=== PATIENT | female | born 1975 | race Caucasian/White ===

== ENCOUNTER 2017-11-18 13:31 | Emergency (ER) | payer MEDICARE, MEDICAID ==
[~2017-11-18] VITALS: Ht 154.9 cm; Wt 74.8 kg
[~2017-11-18 13:31] MED LIST: CARB200T OR; LACO50TA2 OR; TOPI200T37 OR
[2017-11-18 17:00] VITALS: BP 124/86
== END 2017-11-18 17:34 | disposition home or self-care (01) ==
LOC: ER 13:37
DX: S09.8XXA Other specified injuries of head, initial encounter (principal); Z88.6 Allergy status to analgesic agent; Z88.1 Allergy status to other antibiotic agents; W20.8XXA Other cause of strike by thrown, projected or falling object, initial encounter; Y93.89 Activity, other specified; Y92.89 Other specified places as the place of occurrence of the external cause; Y99.8 Other external cause status
CPT/HCPCS: 70450

== ENCOUNTER 2022-09-03 14:17 | Inpatient (IN) | payer MEDICARE, MEDICAID ==
[~2022-09-03] VITALS: Ht 165.1 cm; Wt 83.7 kg
[2022-09-03] VITALS (13 sets, daily range): BP systolic 99–142; BP diastolic 56–73
[~2022-09-03 14:17] MED LIST changes: +BRIV1TAB4 PO; +CHOL20007 PO; +FOLI1TAB6 PO; +OMEP20TA PO
[2022-09-03 15:17] LABS: Basophils # (auto) 0.1 10 ^3/uL (0-0.2); Basophils % (auto) 0.3 % (0.0-2.0); Eosinophils # (auto) 0 10 ^3/uL (0-0.8); Hematocrit 45.7 % (36.0-46.0); Hemoglobin 14.6 g/dL (12.2-16.2); Lymphocytes # (auto) 0.9 10 ^3/uL (0.4-5.4); Lymphocytes % (auto) 5.5 % (10.0-50.0); Mean Corpuscular Hemoglobin 26.6 pg (28.0-32.0); Mean Corpuscular Hgb Conc. 31.9 g/dL (32.0-36.0); Mean Corpuscular Volume 83.2 fL (80.0-100.0); Monocytes # (auto) 0.6 10 ^3/uL (0-1.3); Monocytes % (auto) 3.5 % (0.0-12.0); Neutrophils # (auto) 14.5 10 ^3/uL (1.6-8.6); Neutrophils % (auto) 90.7 % (37.0-80.0); Nucleated Red Blood Cells % 0.1 %; Red Blood Cells 5.49 10^6/uL (4.0-5.20); Red Cell Distribution Width 15.7 % (11.8-14.3)
[2022-09-03 15:26] LABS: Albumin 3.5 g/dL (3.4-5.0); Calcium 8.4 mg/dL (8.5-10.1); Potassium 3.6 mmol/L (3.5-5.1)
[2022-09-03 15:31] LABS: BUN/Creatinine Ratio 7.2; Bilirubin, Total 0.6 mg/dL (0.2-1.0); Total Protein 7.9 g/dL (6.4-8.2)
[2022-09-03 15:48] LABS: Urine Bacteria FEW /hpf (None Seen); Urine Blood 1+ /uL (Negative); Urine Mucus FEW (None Seen); Urine WBC 5 /hpf (0 - 5)
[2022-09-03] MEDS ORDERED: SODIUM CHLORIDE 0.9% 1,000 ML IVB ONE (16:15)
[2022-09-03] MEDS ORDERED: PIPERACILLIN-TAZOB 3.375GM 100 ML IV ONE (16:15)
[2022-09-03] MEDS ORDERED: PHENYLEPHRINE HCL 10 MG/ML VL IV ONE (17:01)
[2022-09-03 17:20] LABS: INR 1.11 (0.9-1.15); Partial Thromboplastin Time 32.8 sec (24.6-33.4)
[2022-09-03] MEDS ORDERED: PANTOPRAZOLE 40 MG/10 ML VIAL INJ IV ONE (18:45)
[2022-09-03] MEDS ORDERED: LIDOCAINE W/ EPINEPHRINE 2% INJ 20ML VIAL ONE (18:47)
[2022-09-03] MEDS ORDERED: SUCCINYLCHOLINE CHLORIDE 20 MG/ML 10ML VIAL IV ONE (18:47)
[2022-09-03] MEDS ORDERED: LIDOCAINE 2% JELLY 11ml (GLYDO) ONE (18:48)
[2022-09-03 18:52] LABS: INR 1.12 (0.9-1.15); Partial Thromboplastin Time 32.8 sec (24.6-33.4)
[2022-09-03] MEDS ORDERED: MIDAZOLAM HCL 2MG/2ML 2ml VIAL (1mg/ml) ONE ×3 (19:24→20:50)
[2022-09-03] MEDS ORDERED: fentaNYL CITRATE 100 MCG/2 ML VL ONE ×2 (19:24→20:25)
[2022-09-03] MEDS ORDERED: MEPERIDINE HCL (50 MG/ML) 1 ML VIAL ONE (19:24)
[2022-09-03] MEDS ORDERED: ETOMIDATE (2MG/ML) 20ML VIAL IV ONE (20:02)
[2022-09-03] MEDS ORDERED: DexAMETHasone SOD PHOS 10MG/1ML VIAL INJ ONE (20:02)
[2022-09-03] MEDS ORDERED: ROCURONIUM 10MG/ML 10ML VIAL IV ONE (20:09)
[2022-09-03] MEDS ORDERED: HYDROmorphone HCL 2 MG/ML VL/or syr ONE ×2 (20:19→20:50)
[2022-09-03] MEDS ORDERED: MORPHINE SULFATE INJ 2 MG/ml SYRG IV PRN (20:45)
[2022-09-03] MEDS ORDERED: MIDAZOLAM DRIP 50 mg/50mL 50 ML IV SCH (20:45)
[2022-09-03] MEDS: LACTATED RINGER'S 1,000 ML IV SCH (21:06)
[2022-09-03] MEDS ORDERED: LORazepam 2MG/ML-1ML VIAL IV PRN (21:15)
[2022-09-03] MEDS ORDERED: LABETALOL HCL 5 MG/ML 4ML SYRINGE IV PRN (21:30)
[2022-09-03] MEDS ORDERED: ONDANSETRON HCL 4 MG/2 ML VIAL IV PRN (21:30)
[2022-09-03] MEDS ORDERED: HYDROmorphone HCL 2 MG/ML VL/or syr IV PRN (21:30)
[2022-09-03] MEDS ORDERED: MIDAZOLAM HCL 2MG/2ML 2ml VIAL (1mg/ml) IV PRN (21:30)
[2022-09-03] MEDS ORDERED: MORPHINE SULFATE 4 MG/ML SYR/VIAL IV PRN ×3 (21:30)
[2022-09-03] MEDS ORDERED: ePHEDrine SULFATE 50 MG/ML AMP IV PRN (21:30)
[2022-09-03] MEDS ORDERED: fentaNYL Drip 2500mCg/250mlNS 250 ML IV SCH (22:00)
[2022-09-03] MEDS: POTASSIUM CHLORIDE 20 MEQ in D5W/LACTATED RINGERS 1,000 ML IV SCH (22:30)
[2022-09-03 22:45] LABS: Basophils # (auto) 0 10 ^3/uL (0-0.2); Basophils % (auto) 0.2 % (0.0-2.0); Eosinophils # (auto) 0 10 ^3/uL (0-0.8); Hemoglobin 12.7 g/dL (12.2-16.2); Lymphocytes # (auto) 0.5 10 ^3/uL (0.4-5.4)
[2022-09-03 22:47] LABS: Hematocrit 39.9 % (36.0-46.0); Lymphocytes % (auto) 2.9 % (10.0-50.0); Mean Corpuscular Hemoglobin 26.9 pg (28.0-32.0); Mean Corpuscular Hgb Conc. 31.7 g/dL (32.0-36.0); Mean Corpuscular Volume 84.9 fL (80.0-100.0); Monocytes # (auto) 0.5 10 ^3/uL (0-1.3); Monocytes % (auto) 3.2 % (0.0-12.0); Neutrophils # (auto) 15.2 10 ^3/uL (1.6-8.6); Neutrophils % (auto) 93.7 % (37.0-80.0); Red Cell Distribution Width 15.4 % (11.8-14.3); White Blood Cell 16.2 10^3/uL (4.4-10.8)
[2022-09-03 22:59] LABS: BUN/Creatinine Ratio 11.3; Calcium 7.5 mg/dL (8.5-10.1); Potassium 3.5 mmol/L (3.5-5.1)
[2022-09-04] VITALS (77 sets, daily range): BP systolic 88–130; BP diastolic 36–75
[2022-09-04] MEDS: PIPERACILLIN-TAZOB 3.375GM 100 ML IV SCH ×3 (03:00→19:36)
[2022-09-04 04:34] LABS: Basophils # (auto) 0 10 ^3/uL (0-0.2); Basophils % (auto) 0.1 % (0.0-2.0); Eosinophils # (auto) 0 10 ^3/uL (0-0.8); Hematocrit 38.3 % (36.0-46.0); Lymphocytes # (auto) 0.7 10 ^3/uL (0.4-5.4); Mean Corpuscular Hemoglobin 26.9 pg (28.0-32.0); Monocytes # (auto) 0.6 10 ^3/uL (0-1.3)
[2022-09-04 04:37] LABS: Hemoglobin 12.1 g/dL (12.2-16.2); Mean Corpuscular Hgb Conc. 31.6 g/dL (32.0-36.0); Monocytes % (auto) 4.3 % (0.0-12.0); Neutrophils # (auto) 13.5 10 ^3/uL (1.6-8.6); Neutrophils % (auto) 90.6 % (37.0-80.0); Red Cell Distribution Width 15.2 % (11.8-14.3)
[2022-09-04 04:51] LABS: Albumin 2.5 g/dL (3.4-5.0); BUN/Creatinine Ratio 8.3; Calcium 7.6 mg/dL (8.5-10.1); Potassium 3.7 mmol/L (3.5-5.1)
[2022-09-04 04:53] LABS: Bilirubin, Total 0.5 mg/dL (0.2-1.0); Total Protein 5.5 g/dL (6.4-8.2)
[2022-09-04] MEDS: POTASSIUM CHLORIDE 20 MEQ in D5W/LACTATED RINGERS 1,000 ML IV SCH ×2 (06:51→12:04)
[2022-09-04] MEDS: PANTOPRAZOLE 40 MG/10 ML VIAL INJ IV SCH (10:07)
[2022-09-04] MEDS: LACOSAMIDE 100 MG in SODIUM CHL 0.9% 100 ML IV SCH ×2 (11:01→22:00)
[2022-09-04] MEDS: LACTATED RINGER'S 1,000 ML IV SCH (11:25)
[2022-09-04] MEDS: MORPHINE SULFATE INJ 2 MG/ml SYRG IV PRN ×2 (15:01→22:57)
[2022-09-05] VITALS (20 sets, daily range): BP systolic 111–139; BP diastolic 67–84
[2022-09-05] MEDS: PIPERACILLIN-TAZOB 3.375GM 100 ML IV SCH ×3 (02:52→20:09)
[2022-09-05] MEDS: POTASSIUM CHLORIDE 20 MEQ in D5W/LACTATED RINGERS 1,000 ML IV SCH ×2 (03:03→23:15)
[2022-09-05 04:16] LABS: Basophils # (auto) 0 10 ^3/uL (0-0.2); Basophils % (auto) 0.4 % (0.0-2.0); Eosinophils # (auto) 0 10 ^3/uL (0-0.8); Eosinophils % (auto) 0.2 % (0.0-7.0); Hematocrit 38.1 % (36.0-46.0); Hemoglobin 12.5 g/dL (12.2-16.2); Lymphocytes # (auto) 0.6 10 ^3/uL (0.4-5.4); Mean Corpuscular Hemoglobin 27.3 pg (28.0-32.0); Mean Corpuscular Hgb Conc. 32.7 g/dL (32.0-36.0); Mean Corpuscular Volume 83.5 fL (80.0-100.0); Monocytes # (auto) 0.4 10 ^3/uL (0-1.3); Monocytes % (auto) 4.5 % (0.0-12.0); Neutrophils # (auto) 7.6 10 ^3/uL (1.6-8.6); Neutrophils % (auto) 87.9 % (37.0-80.0); Red Blood Cells 4.56 10^6/uL (4.0-5.20); Red Cell Distribution Width 14.9 % (11.8-14.3); White Blood Cell 8.7 10^3/uL (4.4-10.8)
[2022-09-05 04:32] LABS: Albumin 2.6 g/dL (3.4-5.0); BUN/Creatinine Ratio 13.6; Calcium 7.6 mg/dL (8.5-10.1); Potassium 3.6 mmol/L (3.5-5.1)
[2022-09-05 04:35] LABS: Bilirubin, Total 0.5 mg/dL (0.2-1.0); Total Protein 5.8 g/dL (6.4-8.2)
[2022-09-05] MEDS: MORPHINE SULFATE INJ 2 MG/ml SYRG IV PRN ×2 (08:45→18:55)
[2022-09-05] MEDS: PANTOPRAZOLE 40 MG/10 ML VIAL INJ IV SCH (11:08)
[2022-09-05] MEDS: LACOSAMIDE 100 MG in SODIUM CHL 0.9% 100 ML IV SCH ×2 (12:11→22:00)
[2022-09-06] MEDS: POTASSIUM CHLORIDE 20 MEQ in D5W/LACTATED RINGERS 1,000 ML IV SCH ×2 (02:00→12:06)
[2022-09-06] MEDS: PIPERACILLIN-TAZOB 3.375GM 100 ML IV SCH ×3 (03:41→19:00)
[2022-09-06] MEDS: MORPHINE SULFATE INJ 2 MG/ml SYRG IV PRN (04:37)
[2022-09-06 05:00] VITALS: BP 145/82
[2022-09-06 06:12] LABS: Basophils # (auto) 0 10 ^3/uL (0-0.2); Basophils % (auto) 0.8 % (0.0-2.0); Eosinophils # (auto) 0.1 10 ^3/uL (0-0.8); Eosinophils % (auto) 2.5 % (0.0-7.0); Hematocrit 36.2 % (36.0-46.0); Hemoglobin 11.7 g/dL (12.2-16.2); Lymphocytes # (auto) 0.9 10 ^3/uL (0.4-5.4); Lymphocytes % (auto) 16.9 % (10.0-50.0); Mean Corpuscular Hemoglobin 26.9 pg (28.0-32.0); Mean Corpuscular Hgb Conc. 32.3 g/dL (32.0-36.0); Mean Corpuscular Volume 83.3 fL (80.0-100.0); Monocytes # (auto) 0.5 10 ^3/uL (0-1.3); Monocytes % (auto) 9.3 % (0.0-12.0); Neutrophils # (auto) 3.9 10 ^3/uL (1.6-8.6); Neutrophils % (auto) 70.5 % (37.0-80.0); Nucleated Red Blood Cells % 0.1 %; Red Blood Cells 4.34 10^6/uL (4.0-5.20); Red Cell Distribution Width 14.7 % (11.8-14.3); White Blood Cell 5.5 10^3/uL (4.4-10.8)
[2022-09-06] MEDS: ONDANSETRON HCL 4 MG/2 ML VIAL IV PRN (06:12)
[2022-09-06 06:31] LABS: Albumin 2.3 g/dL (3.4-5.0); Calcium 7.6 mg/dL (8.5-10.1); Potassium 3.3 mmol/L (3.5-5.1)
[2022-09-06] MEDS ORDERED: TOPI200T43 (06:44)
[2022-09-06] MEDS ORDERED: ALBUAER3 (06:44)
[2022-09-06] MEDS ORDERED: CARB100T4 (06:44)
[2022-09-06] MEDS ORDERED: FERR325T20 PO (06:44)
[2022-09-06] MEDS ORDERED: BRIV1TAB7 (06:44)
[2022-09-06] MEDS ORDERED: OMEP-260 (06:44)
[2022-09-06] MEDS ORDERED: LATA0.0019 (06:44)
[2022-09-06 06:46] LABS: BUN/Creatinine Ratio 7.1; Bilirubin, Total 0.4 mg/dL (0.2-1.0); Total Protein 5.4 g/dL (6.4-8.2)
[2022-09-06 08:51] VITALS: BP 110/62
[2022-09-06] MEDS: LACOSAMIDE 100 MG in SODIUM CHL 0.9% 100 ML IV SCH (10:00)
[2022-09-06] MEDS ORDERED: POTASSIUM CHL 20MEQ/100ML 100 ML IV ONE (10:00)
[2022-09-06] MEDS: PANTOPRAZOLE 40 MG/10 ML VIAL INJ IV SCH (10:12)
[2022-09-06 13:00] VITALS: BP 144/68
[2022-09-06 16:51] VITALS: BP 127/71
[2022-09-06 22:06] VITALS: BP 118/53
[2022-09-06] MEDS ORDERED: LACOSAMIDE 100 MG in SODIUM CHL 0.9% 100 ML IV ONE (23:45)
[2022-09-07] MEDS: PIPERACILLIN-TAZOB 3.375GM 100 ML IV SCH ×2 (03:03→10:56)
[2022-09-07] MEDS: POTASSIUM CHLORIDE 20 MEQ in D5W/LACTATED RINGERS 1,000 ML IV SCH ×2 (03:03→05:33)
[2022-09-07 05:17] VITALS: BP 126/79
[2022-09-07] MEDS ORDERED: carBAMazepine 200 MG TAB PO SCH (06:00)
[2022-09-07 06:54] LABS: Basophils # (auto) 0 10 ^3/uL (0-0.2); Basophils % (auto) 0.8 % (0.0-2.0); Eosinophils # (auto) 0.2 10 ^3/uL (0-0.8); Eosinophils % (auto) 3.4 % (0.0-7.0); Hematocrit 36.1 % (36.0-46.0); Hemoglobin 12.2 g/dL (12.2-16.2); Mean Corpuscular Hemoglobin 27.8 pg (28.0-32.0); Mean Corpuscular Hgb Conc. 33.8 g/dL (32.0-36.0); Mean Corpuscular Volume 82.3 fL (80.0-100.0); Monocytes # (auto) 0.5 10 ^3/uL (0-1.3); Monocytes % (auto) 10.2 % (0.0-12.0); Neutrophils # (auto) 3.3 10 ^3/uL (1.6-8.6); Neutrophils % (auto) 65.6 % (37.0-80.0); Nucleated Red Blood Cells % 0.2 %; Red Blood Cells 4.39 10^6/uL (4.0-5.20); Red Cell Distribution Width 14.6 % (11.8-14.3)
[2022-09-07 07:05] LABS: Albumin 2.4 g/dL (3.4-5.0); Calcium 8.3 mg/dL (8.5-10.1); Magnesium 2.3 mg/dL (1.6-2.6); Potassium 3.5 mmol/L (3.5-5.1)
[2022-09-07 07:10] LABS: BUN/Creatinine Ratio 4.7; Bilirubin, Total 0.5 mg/dL (0.2-1.0); Total Protein 6.4 g/dL (6.4-8.2)
[2022-09-07 09:03] VITALS: BP 107/69
[2022-09-07] MEDS: PANTOPRAZOLE 40 MG/10 ML VIAL INJ IV SCH (09:37)
[2022-09-07] MEDS: TOPIRAMATE 100 MG TAB PO SCH ×2 (09:39→21:55)
[2022-09-07] MEDS: LACOSAMIDE 50 MG TAB PO SCH ×2 (09:40→21:56)
[2022-09-07] MEDS ORDERED: levETIRAcetam 500 MG TAB PO SCH (10:00)
[2022-09-07] MEDS ORDERED: diphenhdrAMINE HCL 50 MG/1 ML VL IM ONE (11:45)
[2022-09-07] MEDS ORDERED: diphenhdrAMINE HCL 50 MG/1 ML VL IV ONE (12:00)
[2022-09-07 12:54] VITALS: BP 133/61
[2022-09-07] MEDS: ONDANSETRON HCL 4 MG/2 ML VIAL IV PRN ×2 (14:49→20:39)
[2022-09-07 16:32] VITALS: BP 128/77
[2022-09-07] MEDS: diphenhdrAMINE HCL 50 MG/1 ML VL IV PRN (18:02)
[2022-09-07] MEDS: BRIVIACT 100 MG PO SCH (21:55)
[2022-09-07] MEDS: carBAMazepine 200 MG TAB PO SCH (21:55)
[2022-09-07 22:00] VITALS: BP 125/77
[2022-09-08 05:00] VITALS: BP 116/69
[2022-09-08 05:29] LABS: Basophils # (auto) 0.1 10 ^3/uL (0-0.2); Basophils % (auto) 0.8 % (0.0-2.0); Eosinophils # (auto) 0.3 10 ^3/uL (0-0.8); Eosinophils % (auto) 4.1 % (0.0-7.0); Hematocrit 35.9 % (36.0-46.0); Hemoglobin 11.8 g/dL (12.2-16.2); Lymphocytes # (auto) 1.4 10 ^3/uL (0.4-5.4); Lymphocytes % (auto) 20.1 % (10.0-50.0); Mean Corpuscular Hemoglobin 26.9 pg (28.0-32.0); Mean Corpuscular Hgb Conc. 32.8 g/dL (32.0-36.0); Mean Corpuscular Volume 82.1 fL (80.0-100.0); Monocytes # (auto) 0.6 10 ^3/uL (0-1.3); Monocytes % (auto) 8.8 % (0.0-12.0); Neutrophils # (auto) 4.8 10 ^3/uL (1.6-8.6); Neutrophils % (auto) 66.2 % (37.0-80.0); Nucleated Red Blood Cells % 0.1 %; Red Blood Cells 4.38 10^6/uL (4.0-5.20); Red Cell Distribution Width 14.8 % (11.8-14.3); White Blood Cell 7.2 10^3/uL (4.4-10.8)
[2022-09-08 05:50] LABS: Potassium 3.6 mmol/L (3.5-5.1)
[2022-09-08 05:57] LABS: Albumin 2.5 g/dL (3.4-5.0); BUN/Creatinine Ratio 6.4; Bilirubin, Total 0.5 mg/dL (0.2-1.0); Magnesium 2.1 mg/dL (1.6-2.6); Total Protein 6.2 g/dL (6.4-8.2)
[2022-09-08] MEDS: PIPERACILLIN-TAZOB 3.375GM 100 ML IV SCH ×2 (09:07→15:44)
[2022-09-08 09:12] VITALS: BP_SYST 111; BP_SYST 124; BP_DIAS 72; BP_DIAS 80
[2022-09-08] MEDS ORDERED: CALAMINE TOPical LOTION180 ML TOP PRN (09:30)
[2022-09-08] MEDS ORDERED: AMOXICILLIN/CLAVUL 875 MG TAB PO SCH (10:00)
[2022-09-08] MEDS: PANTOPRAZOLE 40 MG/10 ML VIAL INJ IV SCH (10:00)
[2022-09-08] MEDS: BRIVIACT 100 MG PO SCH ×2 (10:00→22:25)
[2022-09-08] MEDS: TOPIRAMATE 100 MG TAB PO SCH ×2 (10:52→22:24)
[2022-09-08] MEDS: LACOSAMIDE 50 MG TAB PO SCH ×2 (10:53→22:24)
[2022-09-08] MEDS: carBAMazepine 200 MG TAB PO SCH ×2 (10:53→22:24)
[2022-09-08 12:33] VITALS: BP 124/71
[2022-09-08 16:52] VITALS: BP 128/70
[2022-09-08] MEDS: diphenhdrAMINE-ZINC ACETATE 1 APPLIC APPL TOP PRN ×2 (17:18→17:45)
[2022-09-08] MEDS: ONDANSETRON HCL 4 MG/2 ML VIAL IV PRN (20:25)
[2022-09-08] MEDS: MORPHINE SULFATE INJ 2 MG/ml SYRG IV PRN (21:00)
[2022-09-08 22:00] VITALS: BP 120/75
[2022-09-09] MEDS: diphenhdrAMINE HCL 50 MG/1 ML VL IV PRN (00:48)
[2022-09-09] MEDS: MORPHINE SULFATE INJ 2 MG/ml SYRG IV PRN (01:13)
[2022-09-09 05:00] VITALS: BP 106/64
[2022-09-09 06:29] LABS: Albumin 2.6 g/dL (3.4-5.0); Calcium 8.1 mg/dL (8.5-10.1); Potassium 3.5 mmol/L (3.5-5.1)
[2022-09-09 06:36] LABS: BUN/Creatinine Ratio 8.3; Bilirubin, Total 0.3 mg/dL (0.2-1.0); Total Protein 6.3 g/dL (6.4-8.2)
[2022-09-09 06:54] LABS: Basophils # (auto) 0.1 10 ^3/uL (0-0.2); Basophils % (auto) 0.9 % (0.0-2.0); Eosinophils # (auto) 0.3 10 ^3/uL (0-0.8); Eosinophils % (auto) 4.4 % (0.0-7.0); Hematocrit 38.6 % (36.0-46.0); Hemoglobin 12.6 g/dL (12.2-16.2); Lymphocytes # (auto) 1.5 10 ^3/uL (0.4-5.4); Lymphocytes % (auto) 22.1 % (10.0-50.0); Mean Corpuscular Hemoglobin 27.1 pg (28.0-32.0); Mean Corpuscular Hgb Conc. 32.8 g/dL (32.0-36.0); Mean Corpuscular Volume 82.7 fL (80.0-100.0); Monocytes # (auto) 0.6 10 ^3/uL (0-1.3); Neutrophils # (auto) 4.5 10 ^3/uL (1.6-8.6); Neutrophils % (auto) 63.6 % (37.0-80.0); Nucleated Red Blood Cells % 0.1 %; Red Blood Cells 4.66 10^6/uL (4.0-5.20); Red Cell Distribution Width 14.9 % (11.8-14.3)
[2022-09-09] MEDS: diphenhdrAMINE-ZINC ACETATE 1 APPLIC APPL TOP PRN ×2 (07:41→20:05)
[2022-09-09] MEDS: PIPERACILLIN-TAZOB 3.375GM 100 ML IV SCH ×2 (08:10)
[2022-09-09 09:24] VITALS: BP 120/67
[2022-09-09 09:27] VITALS: BP 120/67
[2022-09-09] MEDS: PANTOPRAZOLE 40 MG/10 ML VIAL INJ IV SCH (09:36)
[2022-09-09] MEDS: BRIVIACT 100 MG PO SCH ×2 (09:36→22:06)
[2022-09-09] MEDS: carBAMazepine 200 MG TAB PO SCH ×2 (09:37→21:15)
[2022-09-09] MEDS: LACOSAMIDE 50 MG TAB PO SCH ×2 (09:38→21:14)
[2022-09-09] MEDS: TOPIRAMATE 100 MG TAB PO SCH ×2 (09:38→21:15)
[2022-09-09] MEDS ORDERED: VANCOMYCIN HCL 1000 MG VL ONE (10:39)
[2022-09-09 13:01] VITALS: BP 117/69
[2022-09-09 17:03] VITALS: BP 115/65
[2022-09-09 22:00] VITALS: BP 122/79
[2022-09-10] MEDS: MORPHINE SULFATE INJ 2 MG/ml SYRG IV PRN ×2 (00:55→08:42)
[2022-09-10 05:00] VITALS: BP 113/67
[2022-09-10 06:47] LABS: Basophils # (auto) 0.1 10 ^3/uL (0-0.2); Eosinophils # (auto) 0.3 10 ^3/uL (0-0.8); Eosinophils % (auto) 3.9 % (0.0-7.0); Hematocrit 37.7 % (36.0-46.0); Hemoglobin 12.5 g/dL (12.2-16.2); Lymphocytes # (auto) 1.6 10 ^3/uL (0.4-5.4); Lymphocytes % (auto) 23.5 % (10.0-50.0); Mean Corpuscular Hemoglobin 27.5 pg (28.0-32.0); Mean Corpuscular Hgb Conc. 33.2 g/dL (32.0-36.0); Mean Corpuscular Volume 82.9 fL (80.0-100.0); Monocytes # (auto) 0.6 10 ^3/uL (0-1.3); Monocytes % (auto) 9.5 % (0.0-12.0); Neutrophils # (auto) 4.2 10 ^3/uL (1.6-8.6); Neutrophils % (auto) 62.1 % (37.0-80.0); Red Blood Cells 4.54 10^6/uL (4.0-5.20); Red Cell Distribution Width 14.9 % (11.8-14.3); White Blood Cell 6.8 10^3/uL (4.4-10.8)
[2022-09-10 06:57] LABS: Chloride 112 mmol/L (98-107); Potassium 3.4 mmol/L (3.5-5.1); Sodium 142 mmol/L (136-145)
[2022-09-10 07:03] LABS: Alanine Aminotransferase 51 U/L (13-56); Albumin 2.5 g/dL (3.4-5.0); Anion Gap 11 (5-15); Aspartate Aminotransferase 22 U/L (15-37); Blood Urea Nitrogen 5 mg/dL (7-18); Calcium 7.9 mg/dL (8.5-10.1); Carbon Dioxide 19 mmol/L (21-32); GFR African American 170 mL/min; GFR Non-African American 141 mL/min; Glucose 86 mg/dL (74-106)
[2022-09-10 07:05] LABS: Alkaline Phosphatase 82 U/L (45-117); Bilirubin, Total 0.3 mg/dL (0.2-1.0); Total Protein 6.4 g/dL (6.4-8.2)
[2022-09-10] MEDS: carBAMazepine 200 MG TAB PO SCH ×2 (08:42→21:34)
[2022-09-10] MEDS: TOPIRAMATE 100 MG TAB PO SCH ×2 (08:42→21:35)
[2022-09-10] MEDS: PANTOPRAZOLE 40 MG TAB PO SCH (08:42)
[2022-09-10] MEDS: LACOSAMIDE 50 MG TAB PO SCH ×2 (08:43→21:35)
[2022-09-10 08:55] VITALS: BP 128/77
[2022-09-10] MEDS: BRIVIACT 100 MG PO SCH ×2 (09:31→21:35)
[2022-09-10 12:41] VITALS: BP 154/80
[2022-09-10 16:39] VITALS: BP 116/63
[2022-09-10 22:00] VITALS: BP 137/66
[2022-09-11 05:00] VITALS: BP 139/85
[2022-09-11 09:00] VITALS: BP 128/67
[2022-09-11] MEDS: carBAMazepine 200 MG TAB PO SCH (09:04)
[2022-09-11] MEDS: LACOSAMIDE 50 MG TAB PO SCH (09:04)
[2022-09-11] MEDS: TOPIRAMATE 100 MG TAB PO SCH (09:05)
[2022-09-11] MEDS: PANTOPRAZOLE 40 MG TAB PO SCH (09:05)
[2022-09-11] MEDS: BRIVIACT 100 MG PO SCH (09:06)
[2022-09-11 13:00] VITALS: BP 120/69
== END 2022-09-11 17:02 | disposition home or self-care (01) | DRG 853 ==
LOC: ER 14:17 → OVERFLOW 18:40 → ICU WEST 20:33 → TELE-WESTW 09-05 10:20 → WEST WING 09-09 17:37
PROVIDERS: ADMIT Nurse Practitioner Family; ATTEND Internal Medicine
PROC: 00P Central Nervous System and Cranial Nerves, Removal (ICD-10-PCS; 2022-09-03)
PROC: 5A1935Z Respiratory Ventilation, Less than 24 Consecutive Hours (ICD-10-PCS; 2022-09-03)
PROC: 0BH17EZ Insertion of Endotracheal Airway into Trachea, Via Natural or Artificial Opening (ICD-10-PCS; 2022-09-03)
PROC: 0DTJ4ZZ Resection of Appendix, Percutaneous Endoscopic Approach (ICD-10-PCS; principal; 2022-09-03 20:02)
DX: A41.9 Sepsis, unspecified organism (principal); J96.00 Acute respiratory failure, unspecified whether with hypoxia or hypercapnia; K35.80 Unspecified acute appendicitis; N39.0 Urinary tract infection, site not specified; G40.201 Localization-related (focal) (partial) symptomatic epilepsy and epileptic syndromes with complex partial seizures, not intractable, with status epilepticus; G80.9 Cerebral palsy, unspecified; K66.0 Peritoneal adhesions (postprocedural) (postinfection); Z20.822 Contact with and (suspected) exposure to COVID-19; E66.01 Morbid (severe) obesity due to excess calories; M19.90 Unspecified osteoarthritis, unspecified site; E87.6 Hypokalemia; G40.401 Other generalized epilepsy and epileptic syndromes, not intractable, with status epilepticus; L27.0 Generalized skin eruption due to drugs and medicaments taken internally; T50.905A Adverse effect of unspecified drugs, medicaments and biological substances, initial encounter; Z68.30 Body mass index [BMI] 30.0-30.9, adult; Z88.6 Allergy status to analgesic agent; Z88.1 Allergy status to other antibiotic agents; Z88.8 Allergy status to other drugs, medicaments and biological substances; Y92.89 Other specified places as the place of occurrence of the external cause; Z79.899 Other long term (current) drug therapy; Z82.49 Family history of ischemic heart disease and other diseases of the circulatory system; Z82.5 Family history of asthma and other chronic lower respiratory diseases; Z83.3 Family history of diabetes mellitus
CPT/HCPCS: 36415; 36600; 70480; 71045; 74176; 80048; 80053; 80185; 81001; 81025; 82150; 82805; 83690; 83735; 85025; 85610; 85730; 86850; 86900; 86901; 87040; 87070; 87081; 87086; 87205; 87426; 93005; 94002; 94003; 94640; 95819; 96365; 97110; 97116; 97163; C9113; C9254; G0378; J0330; J1100; J2250; J2405; J2543; J3480; J7060

== ENCOUNTER 2023-08-22 08:45 | Inpatient (IN) | payer MEDICARE, MEDICAID ==
[~2023-08-22] VITALS: Ht 167.6 cm; Wt 72.5 kg
[~2023-08-22 08:45] MED LIST changes: +ALBUAER3; +BRIV1TAB7; +CARB100T4; +FERR325T20 PO; +FOLI-119 PO; -FOLI1TAB6 PO; +LATA0.008; +OMEP1CAP70; +TOPI200T43
[2023-08-22 09:30] VITALS: PULSE 85; RESP 18; O2SAT 94
[2023-08-22 09:37] LABS: Alanine Aminotransferase 15 U/L (7-40); Alkaline Phosphatase 112 U/L (46-116); Anion Gap 9 (5-15); Aspartate Aminotransferase 10 U/L (13-40); BUN/Creatinine Ratio 16.7 (10.0-20.0); Blood Urea Nitrogen 10 mg/dL (9-23); Calcium 8.8 mg/dL (8.5-10.1); Carbon Dioxide 22 mmol/L (20-30); Chloride 111 mmol/L (98-107); Glucose 86 mg/dL (74-106); INR 1.02 (0.9-1.15); Partial Thromboplastin Time 30.4 SEC (24.5-34.5); Potassium 3.8 mmol/L (3.5-5.1); Prothrombin Time 10.7 sec (9.3-11.8); Sodium 142 mmol/L (136-145)
[2023-08-22 09:38] LABS: Bilirubin, Total 0.5 mg/dL (0.2-1.0); Total Protein 6.4 g/dL (5.7-8.2)
[2023-08-22 10:19] LABS: Basophils # (auto) 0.1 10 ^3/uL (0-0.2); Basophils % (auto) 0.7 % (0.0-2.0); Eosinophils # (auto) 0.3 10 ^3/uL (0-0.8); Eosinophils % (auto) 2.2 % (0.0-7.0); Hematocrit 42.4 % (36.0-46.0); Hemoglobin 14.2 g/dL (12.2-16.2); Lymphocytes # (auto) 1.6 10 ^3/uL (0.4-5.4); Lymphocytes % (auto) 11.3 % (10.0-50.0); Mean Corpuscular Hemoglobin 28.4 pg (28.0-32.0); Mean Corpuscular Hgb Conc. 33.5 g/dL (32.0-36.0); Mean Corpuscular Volume 84.8 fL (80.0-100.0); Monocytes # (auto) 0.8 10 ^3/uL (0-1.3); Monocytes % (auto) 5.7 % (0.0-12.0); Neutrophils # (auto) 11.1 10 ^3/uL (1.6-8.6); Neutrophils % (auto) 80.1 % (37.0-80.0); Nucleated Red Blood Cells % 0.1 %; Red Blood Cells 4.99 10^6/uL (4.0-5.20); Red Cell Distribution Width 14.3 % (11.8-14.3); White Blood Cell 13.8 10^3/uL (4.4-10.8)
[2023-08-22] MEDS ORDERED: cefTRIAXone 1GM/50ML D5W 50 ML IV ONE (12:45)
[2023-08-22] MEDS ORDERED: SODIUM CHLORIDE 0.9% 1,000 ML IV ONE (12:45)
[2023-08-22 19:45] VITALS: PULSE 80; RESP 18; O2SAT 94
[2023-08-22] MEDS ORDERED: ACETAMINOPHEN 325 MG TAB PO ONE (21:15)
[2023-08-22] MEDS ORDERED: NITROGLYCERIN 0.4 MG SL TAB SL PRN (21:30)
[2023-08-22] MEDS ORDERED: IBUPROFEN 600 MG TAB PO ONE (21:30)
[2023-08-22] MEDS ORDERED: MORPHINE SULFATE INJ 2 MG/ml SYRG IV PRN (21:30)
[2023-08-22] MEDS: carBAMazepine 200 MG TAB PO SCH (21:43)
[2023-08-22] MEDS: TOPIRAMATE 100 MG TAB PO SCH (21:44)
[2023-08-22] MEDS ORDERED: LORazepam 2MG/ML-1ML VIAL IV PRN (22:30)
[2023-08-22 22:37] LABS: Rapid Influenza A Negative (Negative); Rapid Influenza B Negative (Negative)
[2023-08-22 22:38] LABS: COVID19 ANTIGEN SOFIA FIA NEGATIVE (NEGATIVE)
[2023-08-23] VITALS (8 sets, daily range): BP systolic 111–144; BP diastolic 74–102; PULSE 14–107; RESP 14–24; TEMP 98.2–98.8; O2SAT 92–96
[2023-08-23] MEDS: SUCRALFATE 1 GM/10 ML ORAL SUSP PO SCH ×4 (06:22→21:07)
[2023-08-23 09:57] LABS: Basophils # (auto) 0.1 10 ^3/uL (0-0.2); Basophils % (auto) 1.1 % (0.0-2.0); Eosinophils # (auto) 0.2 10 ^3/uL (0-0.8); Eosinophils % (auto) 2.2 % (0.0-7.0); Hematocrit 42.4 % (36.0-46.0); Hemoglobin 14.2 g/dL (12.2-16.2); Lymphocytes # (auto) 1.1 10 ^3/uL (0.4-5.4); Lymphocytes % (auto) 15.2 % (10.0-50.0); Mean Corpuscular Hemoglobin 28.2 pg (28.0-32.0); Mean Corpuscular Hgb Conc. 33.4 g/dL (32.0-36.0); Mean Corpuscular Volume 84.5 fL (80.0-100.0); Monocytes # (auto) 0.4 10 ^3/uL (0-1.3); Monocytes % (auto) 5.3 % (0.0-12.0); Neutrophils # (auto) 5.7 10 ^3/uL (1.6-8.6); Neutrophils % (auto) 76.2 % (37.0-80.0); Nucleated Red Blood Cells % 0.2 %; Red Blood Cells 5.02 10^6/uL (4.0-5.20); Red Cell Distribution Width 14.1 % (11.8-14.3); White Blood Cell 7.5 10^3/uL (4.4-10.8)
[2023-08-23] MEDS ORDERED: LATANOPROST 0.005 % OPTH(EYE) SOL 2.5ML EACHEYE SCH (10:00)
[2023-08-23 10:13] LABS: Alanine Aminotransferase 14 U/L (7-40); Albumin 4.1 g/dL (3.2-4.8); Alkaline Phosphatase 113 U/L (46-116); Anion Gap 8 (5-15); Aspartate Aminotransferase 15 U/L (13-40); Bilirubin, Total 0.4 mg/dL (0.2-1.0); Calcium 8.8 mg/dL (8.5-10.1); Carbon Dioxide 22 mmol/L (20-30); Chloride 110 mmol/L (98-107); Cholesterol 161 mg/dL (< 200); Glucose 98 mg/dL (74-106); HDL Cholesterol 38 mg/dL (40-59); LDL Cholesterol 109 mg/dL (< 100); Potassium 3.9 mmol/L (3.5-5.1); Sodium 140 mmol/L (136-145); Total Protein 6.9 g/dL (5.7-8.2); Triglycerides 110 mg/dL (< 150)
[2023-08-23] MEDS: carBAMazepine 200 MG TAB PO SCH ×2 (10:26→21:08)
[2023-08-23] MEDS: TOPIRAMATE 100 MG TAB PO SCH ×2 (10:27→21:09)
[2023-08-23] MEDS: PANTOPRAZOLE 40 MG/10 ML VIAL INJ IV SCH ×2 (10:28→21:07)
[2023-08-23 10:33] LABS: BUN/Creatinine Ratio 8.9 (10.0-20.0); Blood Urea Nitrogen < 5 mg/dL (9-23)
[2023-08-23] MEDS ORDERED: cefTRIAXone 1GM/50ML D5W 50 ML IV ONE (13:15)
[2023-08-23 20:50] LABS: Urine Bacteria NONE SEEN /hpf (None Seen); Urine Blood Negative /uL (Negative); Urine Clarity Clear (Clear); Urine Color Yellow (Yellow); Urine Protein, UAD Negative (Negative); Urine Specific Gravity 1.014 (1.001-1.035); Urine Urobilinogen Normal (Negative); Urine WBC <1 /hpf (0 - 5); Urine pH 6.5 (5.0-8.0)
[2023-08-23] MEDS: LATANOPROST 0.005 % OPTH(EYE) SOL 2.5ML EACHEYE SCH (21:09)
[2023-08-24] VITALS (8 sets, daily range): BP systolic 117–127; BP diastolic 73–84; PULSE 18–96; RESP 16–19; TEMP 94–99.1; O2SAT 94–97
[2023-08-24] MEDS: SUCRALFATE 1 GM/10 ML ORAL SUSP PO SCH ×4 (05:56→21:35)
[2023-08-24] MEDS: cefTRIAXone 1GM/50ML D5W 50 ML IV SCH (10:23)
[2023-08-24] MEDS: carBAMazepine 200 MG TAB PO SCH ×2 (10:36→21:36)
[2023-08-24] MEDS: TOPIRAMATE 100 MG TAB PO SCH ×2 (10:37→21:36)
[2023-08-24] MEDS: PANTOPRAZOLE 40 MG/10 ML VIAL INJ IV SCH ×2 (10:44→21:52)
[2023-08-24] MEDS ORDERED: ONDANSETRON HCL 4 MG/2 ML VIAL IV PRN (12:30)
[2023-08-24] MEDS: DOCUSATE SOD 100 MG CAP PO SCH (21:36)
[2023-08-24] MEDS: LATANOPROST 0.005 % OPTH(EYE) SOL 2.5ML EACHEYE SCH (21:37)
[2023-08-24] MEDS: ACETAMINOPHEN 325 MG TAB PO PRN (23:18)
[2023-08-25 05:00] VITALS: BP 126/80; PULSE 85; RESP 18; TEMP 97.9; O2SAT 92
[2023-08-25 06:05] LABS: Basophils # (auto) 0.1 10 ^3/uL (0-0.2); Basophils % (auto) 0.9 % (0.0-2.0); Eosinophils # (auto) 0.3 10 ^3/uL (0-0.8); Eosinophils % (auto) 3.4 % (0.0-7.0); Hematocrit 43.6 % (36.0-46.0); Hemoglobin 14.7 g/dL (12.2-16.2); Lymphocytes # (auto) 1.5 10 ^3/uL (0.4-5.4); Lymphocytes % (auto) 20.4 % (10.0-50.0); Mean Corpuscular Hemoglobin 28.6 pg (28.0-32.0); Mean Corpuscular Hgb Conc. 33.6 g/dL (32.0-36.0); Mean Corpuscular Volume 85.1 fL (80.0-100.0); Monocytes # (auto) 0.5 10 ^3/uL (0-1.3); Monocytes % (auto) 6.6 % (0.0-12.0); Neutrophils % (auto) 68.7 % (37.0-80.0); Nucleated Red Blood Cells % 0.2 %; Red Blood Cells 5.13 10^6/uL (4.0-5.20); Red Cell Distribution Width 14.1 % (11.8-14.3); White Blood Cell 7.3 10^3/uL (4.4-10.8)
[2023-08-25] MEDS: SUCRALFATE 1 GM/10 ML ORAL SUSP PO SCH ×4 (06:31→21:28)
[2023-08-25 06:32] LABS: Alanine Aminotransferase 20 U/L (7-40); Albumin 4.1 g/dL (3.2-4.8); Alkaline Phosphatase 112 U/L (46-116); Aspartate Aminotransferase 20 U/L (13-40); BUN/Creatinine Ratio 7.8 (10.0-20.0); Bilirubin, Total 0.4 mg/dL (0.2-1.0); Blood Urea Nitrogen 5 mg/dL (9-23); Chloride 109 mmol/L (98-107); Glucose 91 mg/dL (74-106); Potassium 3.3 mmol/L (3.5-5.1); Sodium 140 mmol/L (136-145)
[2023-08-25 07:01] LABS: Anion Gap 10 (5-15); Carbon Dioxide 21 mmol/L (20-30)
[2023-08-25] MEDS ORDERED: POTASSIUM EFFERVESENT TAB 25 MEQ PO ONE (07:15)
[2023-08-25 08:20] VITALS: PULSE 91
[2023-08-25 08:58] VITALS: BP 122/77; PULSE 80; RESP 18; TEMP 98.1; O2SAT 96
[2023-08-25] MEDS: cefTRIAXone 1GM/50ML D5W 50 ML IV SCH (09:30)
[2023-08-25] MEDS: PANTOPRAZOLE 40 MG/10 ML VIAL INJ IV SCH ×2 (10:08→21:28)
[2023-08-25] MEDS: DOCUSATE SOD 100 MG CAP PO SCH ×2 (10:08→21:31)
[2023-08-25] MEDS: TOPIRAMATE 100 MG TAB PO SCH ×2 (10:08→21:31)
[2023-08-25] MEDS: carBAMazepine 200 MG TAB PO SCH ×2 (10:08→21:31)
[2023-08-25 12:32] LABS: Magnesium 2.1 mg/dL (1.6-2.6)
[2023-08-25 13:00] VITALS: BP 132/77; PULSE 85; RESP 16; TEMP 98.2; O2SAT 94
[2023-08-25 14:04] LABS: Folate (Folic Acid) > 24.00 ng/mL (>5.38)
[2023-08-25 16:56] VITALS: BP 118/81; PULSE 85; RESP 16; TEMP 98.5; O2SAT 93
[2023-08-25] MEDS ORDERED: ERGOCALCIFEROL 50,000 UNIT(1.25MG) CAP PO SCH (19:45)
[2023-08-25] MEDS ORDERED: CYANOCOBALAMIN (B-12) 1000 MCG/1 ML VIAL IM ONE (19:45)
[2023-08-25] MEDS: LATANOPROST 0.005 % OPTH(EYE) SOL 2.5ML EACHEYE SCH (21:30)
[2023-08-26 02:00] VITALS: BP 128/76; PULSE 98; RESP 16; TEMP 98.8; O2SAT 94
[2023-08-26] MEDS: ACETAMINOPHEN 325 MG TAB PO PRN (02:50)
[2023-08-26 05:24] VITALS: BP 131/86; PULSE 79; RESP 17; TEMP 98.1; O2SAT 95
[2023-08-26 05:56] LABS: Basophils # (auto) 0.1 10 ^3/uL (0-0.2); Basophils % (auto) 1.1 % (0.0-2.0); Eosinophils # (auto) 0.3 10 ^3/uL (0-0.8); Eosinophils % (auto) 4.3 % (0.0-7.0); Hematocrit 45.5 % (36.0-46.0); Hemoglobin 15.2 g/dL (12.2-16.2); Lymphocytes # (auto) 1.8 10 ^3/uL (0.4-5.4); Lymphocytes % (auto) 22.9 % (10.0-50.0); Mean Corpuscular Hemoglobin 28.5 pg (28.0-32.0); Mean Corpuscular Hgb Conc. 33.4 g/dL (32.0-36.0); Mean Corpuscular Volume 85.2 fL (80.0-100.0); Monocytes # (auto) 0.6 10 ^3/uL (0-1.3); Monocytes % (auto) 7.9 % (0.0-12.0); Neutrophils # (auto) 5.1 10 ^3/uL (1.6-8.6); Neutrophils % (auto) 63.8 % (37.0-80.0); Nucleated Red Blood Cells % 0.1 %; Red Blood Cells 5.33 10^6/uL (4.0-5.20); Red Cell Distribution Width 13.9 % (11.8-14.3)
[2023-08-26 06:12] LABS: Alanine Aminotransferase 17 U/L (7-40); Albumin 4.1 g/dL (3.2-4.8); Alkaline Phosphatase 117 U/L (46-116); Anion Gap 8 (5-15); BUN/Creatinine Ratio 8.1 (10.0-20.0); Blood Urea Nitrogen 6 mg/dL (9-23); Carbon Dioxide 23 mmol/L (20-30); Chloride 108 mmol/L (98-107); Glucose 93 mg/dL (74-106); Potassium 3.3 mmol/L (3.5-5.1); Sodium 139 mmol/L (136-145)
[2023-08-26 06:13] LABS: Aspartate Aminotransferase 14 U/L (13-40); Bilirubin, Total 0.3 mg/dL (0.2-1.0); Total Protein 7.1 g/dL (5.7-8.2)
[2023-08-26] MEDS: SUCRALFATE 1 GM/10 ML ORAL SUSP PO SCH ×4 (06:20→22:00)
[2023-08-26] MEDS ORDERED: POTASSIUM EFFERVESENT TAB 25 MEQ PO ONE (06:45)
[2023-08-26 08:46] VITALS: BP 114/73; PULSE 81; RESP 16; TEMP 98.2; O2SAT 94
[2023-08-26] MEDS: DOCUSATE SOD 100 MG CAP PO SCH ×2 (11:05→22:01)
[2023-08-26] MEDS: carBAMazepine 200 MG TAB PO SCH ×2 (11:07→22:01)
[2023-08-26] MEDS: TOPIRAMATE 100 MG TAB PO SCH ×2 (11:07→22:01)
[2023-08-26] MEDS: cefTRIAXone 1GM/50ML D5W 50 ML IV SCH (11:08)
[2023-08-26] MEDS: PANTOPRAZOLE 40 MG/10 ML VIAL INJ IV SCH ×2 (11:08→22:00)
[2023-08-26 12:41] VITALS: BP 116/78; PULSE 84; RESP 18; TEMP 98.6; O2SAT 95
[2023-08-26] MEDS ORDERED: MILK OF MAGNESIA 30ML SUSP PO ONE (16:30)
[2023-08-26 17:25] VITALS: BP 106/81; PULSE 81; RESP 16; TEMP 98.2; O2SAT 96
[2023-08-26 22:00] VITALS: BP 119/78; PULSE 82; RESP 19; TEMP 98.3; O2SAT 96
[2023-08-26] MEDS: LATANOPROST 0.005 % OPTH(EYE) SOL 2.5ML EACHEYE SCH (22:00)
[2023-08-27 05:00] VITALS: BP 105/72; PULSE 82; RESP 18; TEMP 98.3; O2SAT 96
[2023-08-27 05:56] LABS: Basophils # (auto) 0.1 10 ^3/uL (0-0.2); Basophils % (auto) 1.1 % (0.0-2.0); Eosinophils # (auto) 0.4 10 ^3/uL (0-0.8); Eosinophils % (auto) 5.4 % (0.0-7.0); Hematocrit 44.5 % (36.0-46.0); Hemoglobin 14.6 g/dL (12.2-16.2); Lymphocytes # (auto) 1.3 10 ^3/uL (0.4-5.4); Lymphocytes % (auto) 18.4 % (10.0-50.0); Mean Corpuscular Hemoglobin 28.5 pg (28.0-32.0); Mean Corpuscular Hgb Conc. 32.8 g/dL (32.0-36.0); Mean Corpuscular Volume 86.8 fL (80.0-100.0); Monocytes # (auto) 0.6 10 ^3/uL (0-1.3); Monocytes % (auto) 8.1 % (0.0-12.0); Neutrophils # (auto) 4.6 10 ^3/uL (1.6-8.6); Nucleated Red Blood Cells % 0.2 %; Red Blood Cells 5.13 10^6/uL (4.0-5.20); Red Cell Distribution Width 14.2 % (11.8-14.3); White Blood Cell 6.9 10^3/uL (4.4-10.8)
[2023-08-27 06:05] LABS: Alanine Aminotransferase 11 U/L (7-40); Albumin 3.9 g/dL (3.2-4.8); Alkaline Phosphatase 107 U/L (46-116); Amylase 35 U/L (30-118); Anion Gap 8 (5-15); Aspartate Aminotransferase 11 U/L (13-40); Blood Urea Nitrogen 6 mg/dL (9-23); Calcium 8.7 mg/dL (8.7-10.4); Carbon Dioxide 23 mmol/L (20-30); Chloride 109 mmol/L (98-107); Glucose 85 mg/dL (74-106); Lipase 43 U/L (12-53); Potassium 3.5 mmol/L (3.5-5.1); Sodium 140 mmol/L (136-145)
[2023-08-27 06:06] LABS: Bilirubin, Total 0.3 mg/dL (0.2-1.0); Total Protein 6.5 g/dL (5.7-8.2)
[2023-08-27] MEDS: SUCRALFATE 1 GM/10 ML ORAL SUSP PO SCH ×4 (06:12→21:45)
[2023-08-27 08:00] VITALS: BP 121/83; PULSE 88; RESP 18; RESP 21; TEMP 98.2; O2SAT 95
[2023-08-27] MEDS: DOCUSATE SOD 100 MG CAP PO SCH ×2 (09:59→21:45)
[2023-08-27] MEDS: cefTRIAXone 1GM/50ML D5W 50 ML IV SCH (09:59)
[2023-08-27] MEDS: TOPIRAMATE 100 MG TAB PO SCH ×2 (10:00→21:46)
[2023-08-27] MEDS: carBAMazepine 200 MG TAB PO SCH ×2 (10:01→21:45)
[2023-08-27] MEDS: PANTOPRAZOLE 40 MG/10 ML VIAL INJ IV SCH ×2 (10:01→21:48)
[2023-08-27 12:00] VITALS: BP 116/80; PULSE 78; RESP 20; TEMP 97.8; O2SAT 93
[2023-08-27] MEDS ORDERED: EZ PAQUE SUSP 12OZ BTL ONE (15:05)
[2023-08-27] MEDS ORDERED: GASTROGRAFIN 30 ML SOL ONE (15:05)
[2023-08-27] MEDS ORDERED: BARIUM SULFATE 98% 340 GM PWDR ONE (15:09)
[2023-08-27 16:00] VITALS: BP 112/70; PULSE 82; RESP 20; TEMP 98.5; O2SAT 95
[2023-08-27 20:00] VITALS: RESP 18
[2023-08-27 21:42] VITALS: BP 118/86; PULSE 84; RESP 18; TEMP 98.4; O2SAT 95
[2023-08-27] MEDS: LATANOPROST 0.005 % OPTH(EYE) SOL 2.5ML EACHEYE SCH (21:46)
[2023-08-28 08:00] VITALS: RESP 18
[2023-08-28] MEDS: cefTRIAXone 1GM/50ML D5W 50 ML IV SCH (09:00)
[2023-08-28] MEDS: carBAMazepine 200 MG TAB PO SCH ×2 (10:00→22:09)
[2023-08-28] MEDS: TOPIRAMATE 100 MG TAB PO SCH ×2 (10:00→22:08)
[2023-08-28] MEDS: PANTOPRAZOLE 40 MG/10 ML VIAL INJ IV SCH ×2 (10:00→22:08)
[2023-08-28] MEDS: DOCUSATE SOD 100 MG CAP PO SCH ×2 (10:00→22:00)
[2023-08-28] MEDS: SUCRALFATE 1 GM/10 ML ORAL SUSP PO SCH ×3 (11:30→22:08)
[2023-08-28 11:52] LABS: Basophils # (auto) 0.1 10 ^3/uL (0-0.2); Basophils % (auto) 1.4 % (0.0-2.0); Eosinophils # (auto) 0.3 10 ^3/uL (0-0.8); Eosinophils % (auto) 4.9 % (0.0-7.0); Hemoglobin 14.9 g/dL (12.2-16.2); Lymphocytes % (auto) 15.8 % (10.0-50.0); Mean Corpuscular Hemoglobin 28.9 pg (28.0-32.0); Mean Corpuscular Hgb Conc. 33.9 g/dL (32.0-36.0); Mean Corpuscular Volume 85.2 fL (80.0-100.0); Monocytes # (auto) 0.6 10 ^3/uL (0-1.3); Neutrophils # (auto) 4.3 10 ^3/uL (1.6-8.6); Neutrophils % (auto) 68.9 % (37.0-80.0); Nucleated Red Blood Cells % 0.5 %; Red Blood Cells 5.17 10^6/uL (4.0-5.20); Red Cell Distribution Width 14.1 % (11.8-14.3); White Blood Cell 6.2 10^3/uL (4.4-10.8)
[2023-08-28 13:00] VITALS: BP 116/82; PULSE 78; RESP 17; TEMP 98.7; O2SAT 97
[2023-08-28 14:52] VITALS: RESP 17
[2023-08-28 15:29] LABS: Alanine Aminotransferase 12 U/L (7-40); Albumin 3.7 g/dL (3.2-4.8); Alkaline Phosphatase 99 U/L (46-116); Anion Gap 11 (5-15); Aspartate Aminotransferase 9 U/L (13-40); BUN/Creatinine Ratio 7.7 (10.0-20.0); Bilirubin, Total 0.2 mg/dL (0.2-1.0); Blood Urea Nitrogen 5 mg/dL (9-23); Calcium 8.7 mg/dL (8.5-10.1); Carbon Dioxide 20 mmol/L (20-30); Chloride 110 mmol/L (98-107); Glucose 78 mg/dL (74-106); Potassium 3.3 mmol/L (3.5-5.1); Sodium 141 mmol/L (136-145); Total Protein 6.3 g/dL (5.7-8.2)
[2023-08-28] MEDS ORDERED: POTASSIUM EFFERVESENT TAB 25 MEQ PO ONE (16:45)
[2023-08-28 17:00] VITALS: BP 118/72; PULSE 89; RESP 18; TEMP 98.5; O2SAT 93
[2023-08-28 20:00] VITALS: RESP 18
[2023-08-28 22:00] VITALS: BP 108/77; PULSE 78; RESP 18; TEMP 98.6; O2SAT 96
[2023-08-28] MEDS: LATANOPROST 0.005 % OPTH(EYE) SOL 2.5ML EACHEYE SCH (22:09)
[2023-08-28] MEDS: ACETAMINOPHEN 325 MG TAB PO PRN (22:16)
[2023-08-29 05:00] VITALS: BP 108/69; PULSE 86; RESP 18; TEMP 98.6; O2SAT 95
[2023-08-29 06:12] LABS: Alanine Aminotransferase 10 U/L (7-40); Albumin 3.8 g/dL (3.2-4.8); Alkaline Phosphatase 106 U/L (46-116); Anion Gap 10 (5-15); Aspartate Aminotransferase 11 U/L (13-40); Bilirubin, Total 0.2 mg/dL (0.2-1.0); Calcium 8.7 mg/dL (8.7-10.4); Carbon Dioxide 23 mmol/L (20-30); Chloride 105 mmol/L (98-107); Glucose 79 mg/dL (74-106); Magnesium 1.9 mg/dL (1.6-2.6); Potassium 3.1 mmol/L (3.5-5.1); Sodium 138 mmol/L (136-145); Total Protein 6.4 g/dL (5.7-8.2)
[2023-08-29 06:17] LABS: Basophils # (auto) 0.1 10 ^3/uL (0-0.2); Basophils % (auto) 0.8 % (0.0-2.0); Eosinophils # (auto) 0.2 10 ^3/uL (0-0.8); Hematocrit 43.9 % (36.0-46.0); Hemoglobin 14.7 g/dL (12.2-16.2); Lymphocytes # (auto) 1.1 10 ^3/uL (0.4-5.4); Lymphocytes % (auto) 11.3 % (10.0-50.0); Mean Corpuscular Hemoglobin 28.5 pg (28.0-32.0); Mean Corpuscular Hgb Conc. 33.6 g/dL (32.0-36.0); Mean Corpuscular Volume 84.7 fL (80.0-100.0); Monocytes # (auto) 0.8 10 ^3/uL (0-1.3); Neutrophils # (auto) 7.3 10 ^3/uL (1.6-8.6); Neutrophils % (auto) 77.9 % (37.0-80.0); Nucleated Red Blood Cells % 0.1 %; Red Blood Cells 5.18 10^6/uL (4.0-5.20); Red Cell Distribution Width 14.2 % (11.8-14.3); White Blood Cell 9.4 10^3/uL (4.4-10.8)
[2023-08-29 06:33] LABS: BUN/Creatinine Ratio 8.1 (10.0-20.0); Blood Urea Nitrogen < 5 mg/dL (9-23)
[2023-08-29] MEDS: SUCRALFATE 1 GM/10 ML ORAL SUSP PO SCH ×4 (06:44→22:31)
[2023-08-29] MEDS ORDERED: POTASSIUM EFFERVESENT TAB 25 MEQ PO ONE (07:00)
[2023-08-29 09:00] VITALS: BP 116/73; PULSE 96; RESP 19; TEMP 98.9; O2SAT 95
[2023-08-29] MEDS: DOCUSATE SOD 100 MG CAP PO SCH ×2 (09:21→09:29)
[2023-08-29] MEDS: carBAMazepine 200 MG TAB PO SCH ×2 (09:22→22:32)
[2023-08-29] MEDS: TOPIRAMATE 100 MG TAB PO SCH ×2 (09:23→22:32)
[2023-08-29] MEDS: cefTRIAXone 1GM/50ML D5W 50 ML IV SCH (09:24)
[2023-08-29] MEDS: PANTOPRAZOLE 40 MG/10 ML VIAL INJ IV SCH ×2 (09:24→22:31)
[2023-08-29 12:25] LABS: INR 1.09 (0.9-1.15); Partial Thromboplastin Time 26.4 SEC (24.5-34.5); Prothrombin Time 11.4 sec (9.3-11.8)
[2023-08-29 12:58] VITALS: BP 101/71; PULSE 85; RESP 18; TEMP 99.1; O2SAT 97
[2023-08-29] MEDS ORDERED: LIDOCAINE 2% (LOCAL ANESTH.) PF 5ml SDV ONE (15:02)
[2023-08-29] MEDS ORDERED: PROPOFOL 10 MG/ML 20 ML IV ONE (15:02)
[2023-08-29 20:00] VITALS: RESP 18
[2023-08-29 22:00] VITALS: BP 105/59; PULSE 88; RESP 20; TEMP 98; O2SAT 98
[2023-08-29] MEDS: LATANOPROST 0.005 % OPTH(EYE) SOL 2.5ML EACHEYE SCH (22:33)
[2023-08-30] VITALS (7 sets, daily range): BP systolic 96–121; BP diastolic 56–74; PULSE 56–85; RESP 15–20; TEMP 97.9–99.4; O2SAT 93–98
[2023-08-30] MEDS: SUCRALFATE 1 GM/10 ML ORAL SUSP PO SCH ×3 (06:16→17:32)
[2023-08-30 06:19] LABS: Basophils # (auto) 0.1 10 ^3/uL (0-0.2); Basophils % (auto) 0.8 % (0.0-2.0); Eosinophils # (auto) 0.2 10 ^3/uL (0-0.8); Eosinophils % (auto) 2.6 % (0.0-7.0); Hematocrit 41.3 % (36.0-46.0); Hemoglobin 13.8 g/dL (12.2-16.2); Lymphocytes # (auto) 1.3 10 ^3/uL (0.4-5.4); Lymphocytes % (auto) 18.6 % (10.0-50.0); Mean Corpuscular Hemoglobin 28.4 pg (28.0-32.0); Mean Corpuscular Hgb Conc. 33.3 g/dL (32.0-36.0); Mean Corpuscular Volume 85.3 fL (80.0-100.0); Monocytes # (auto) 0.5 10 ^3/uL (0-1.3); Monocytes % (auto) 8.1 % (0.0-12.0); Neutrophils # (auto) 4.7 10 ^3/uL (1.6-8.6); Neutrophils % (auto) 69.9 % (37.0-80.0); Nucleated Red Blood Cells % 0.1 %; Red Blood Cells 4.84 10^6/uL (4.0-5.20); Red Cell Distribution Width 14.3 % (11.8-14.3); White Blood Cell 6.8 10^3/uL (4.4-10.8)
[2023-08-30 06:40] LABS: Alanine Aminotransferase 10 U/L (7-40); Albumin 3.6 g/dL (3.2-4.8); Alkaline Phosphatase 97 U/L (46-116); Anion Gap 9 (5-15); Aspartate Aminotransferase 14 U/L (13-40); Calcium 8.3 mg/dL (8.7-10.4); Carbon Dioxide 22 mmol/L (20-30); Chloride 108 mmol/L (98-107); Glucose 84 mg/dL (74-106); Magnesium 1.8 mg/dL (1.6-2.6); Sodium 139 mmol/L (136-145)
[2023-08-30 06:41] LABS: Bilirubin, Total 0.2 mg/dL (0.2-1.0)
[2023-08-30 06:43] LABS: BUN/Creatinine Ratio 8.6 (10.0-20.0); Blood Urea Nitrogen < 5 mg/dL (9-23)
[2023-08-30] MEDS ORDERED: DOCUSATE SOD 100 MG CAP PO PRN (07:30)
[2023-08-30] MEDS ORDERED: POTASSIUM CHLORIDE 60 MEQ, LIDOCAINE 1% (LOCAL ANESTH.) 6 ML in SODIUM CHL 0.9% 500 ML IV ONE (07:30)
[2023-08-30] MEDS ORDERED: BUPIVACAINE 0.5% P/F INJ 10 ML VIAL ONE (07:51)
[2023-08-30] MEDS ORDERED: LIDOCAINE W/ EPINEPHRINE 2% INJ 20ML VIAL ONE (07:51)
[2023-08-30] MEDS: PANTOPRAZOLE 40 MG/10 ML VIAL INJ IV SCH ×2 (07:53→21:42)
[2023-08-30] MEDS ORDERED: levoFLOXacin 500MG 100 ML IV ONE (07:57)
[2023-08-30] MEDS ORDERED: fentaNYL CITRATE 100 MCG/2 ML VL ONE (08:20)
[2023-08-30] MEDS ORDERED: MIDAZOLAM HCL 2MG/2ML 2ml VIAL (1mg/ml) ONE (08:20)
[2023-08-30] MEDS ORDERED: ONDANSETRON HCL 4 MG/2 ML VIAL ONE (09:06)
[2023-08-30] MEDS ORDERED: ROCURONIUM 10MG/ML 10ML VIAL IV ONE (09:06)
[2023-08-30] MEDS ORDERED: GLYCOPYRROLATE 0.2 MG/ML 1ML VIAL ONE (09:07)
[2023-08-30] MEDS ORDERED: NEOSTIGMINE 1 MG/ML INJ (10mg/10ML VIAL) ONE (09:07)
[2023-08-30] MEDS ORDERED: PROPOFOL 10 MG/ML 20 ML IV ONE (09:07)
[2023-08-30] MEDS ORDERED: HYDROmorphone HCL 2 MG/ML VL/or syr IV PRN ×2 (09:15→09:30)
[2023-08-30] MEDS: cefTRIAXone 1GM/50ML D5W 50 ML IV SCH (09:26)
[2023-08-30] MEDS ORDERED: ONDANSETRON HCL 4 MG/2 ML VIAL IV ONE (09:30)
[2023-08-30] MEDS: TOPIRAMATE 100 MG TAB PO SCH ×2 (11:34→21:42)
[2023-08-30] MEDS: carBAMazepine 200 MG TAB PO SCH ×2 (11:34→21:43)
[2023-08-30] MEDS: ACETAMINOPHEN 325 MG TAB PO PRN ×2 (11:36→17:29)
[2023-08-30 12:10] LABS: Basophils # (auto) 0.1 10 ^3/uL (0-0.2); Basophils % (auto) 0.6 % (0.0-2.0); Eosinophils # (auto) 0 10 ^3/uL (0-0.8); Eosinophils % (auto) 0.5 % (0.0-7.0); Hematocrit 43.1 % (36.0-46.0); Hemoglobin 14.2 g/dL (12.2-16.2); Lymphocytes # (auto) 0.7 10 ^3/uL (0.4-5.4); Lymphocytes % (auto) 7.5 % (10.0-50.0); Mean Corpuscular Hemoglobin 28.3 pg (28.0-32.0); Mean Corpuscular Volume 85.8 fL (80.0-100.0); Monocytes # (auto) 0.2 10 ^3/uL (0-1.3); Monocytes % (auto) 2.5 % (0.0-12.0); Neutrophils # (auto) 8.3 10 ^3/uL (1.6-8.6); Neutrophils % (auto) 88.9 % (37.0-80.0); Nucleated Red Blood Cells % 0.1 %; Red Blood Cells 5.02 10^6/uL (4.0-5.20); White Blood Cell 9.3 10^3/uL (4.4-10.8)
[2023-08-30] MEDS: LATANOPROST 0.005 % OPTH(EYE) SOL 2.5ML EACHEYE SCH (21:43)
[2023-08-31 05:00] VITALS: BP 112/71; PULSE 77; RESP 20; TEMP 98.3; O2SAT 90
[2023-08-31 06:10] LABS: Basophils # (auto) 0 10 ^3/uL (0-0.2); Basophils % (auto) 0.2 % (0.0-2.0); Eosinophils # (auto) 0.1 10 ^3/uL (0-0.8); Eosinophils % (auto) 1.5 % (0.0-7.0); Hematocrit 40.9 % (36.0-46.0); Hemoglobin 13.7 g/dL (12.2-16.2); Lymphocytes # (auto) 1.6 10 ^3/uL (0.4-5.4); Lymphocytes % (auto) 18.8 % (10.0-50.0); Mean Corpuscular Hemoglobin 28.4 pg (28.0-32.0); Mean Corpuscular Hgb Conc. 33.5 g/dL (32.0-36.0); Mean Corpuscular Volume 84.8 fL (80.0-100.0); Monocytes # (auto) 0.5 10 ^3/uL (0-1.3); Monocytes % (auto) 5.7 % (0.0-12.0); Neutrophils # (auto) 6.4 10 ^3/uL (1.6-8.6); Neutrophils % (auto) 73.8 % (37.0-80.0); Nucleated Red Blood Cells % 0.1 %; Red Blood Cells 4.83 10^6/uL (4.0-5.20); Red Cell Distribution Width 14.5 % (11.8-14.3); White Blood Cell 8.7 10^3/uL (4.4-10.8)
[2023-08-31 06:33] LABS: Alanine Aminotransferase 16 U/L (7-40); Alkaline Phosphatase 94 U/L (46-116); Anion Gap 10 (5-15); Calcium 8.5 mg/dL (8.7-10.4); Carbon Dioxide 23 mmol/L (20-30); Chloride 108 mmol/L (98-107); Potassium 3.2 mmol/L (3.5-5.1); Sodium 141 mmol/L (136-145)
[2023-08-31 06:34] LABS: Glucose 83 mg/dL (74-106)
[2023-08-31 06:35] LABS: Albumin 3.5 g/dL (3.2-4.8); Aspartate Aminotransferase 19 U/L (13-40); Magnesium 1.8 mg/dL (1.6-2.6)
[2023-08-31 06:36] LABS: Bilirubin, Total 0.2 mg/dL (0.2-1.0); Total Protein 5.6 g/dL (5.7-8.2)
[2023-08-31 06:37] LABS: BUN/Creatinine Ratio 9.6 (10.0-20.0); Blood Urea Nitrogen < 5 mg/dL (9-23)
[2023-08-31] MEDS: SUCRALFATE 1 GM/10 ML ORAL SUSP PO SCH ×2 (07:28→18:22)
[2023-08-31 08:30] VITALS: BP 111/68; PULSE 69; RESP 18; TEMP 98
[2023-08-31] MEDS: PANTOPRAZOLE 40 MG/10 ML VIAL INJ IV SCH ×2 (09:16→22:14)
[2023-08-31] MEDS: cefTRIAXone 1GM/50ML D5W 50 ML IV SCH (09:16)
[2023-08-31] MEDS: carBAMazepine 200 MG TAB PO SCH ×2 (09:36→22:14)
[2023-08-31] MEDS: TOPIRAMATE 100 MG TAB PO SCH ×2 (09:36→22:14)
[2023-08-31] MEDS: ACETAMINOPHEN 325 MG TAB PO PRN ×3 (09:36→22:14)
[2023-08-31] MEDS ORDERED: POTASSIUM EFFERVESENT TAB 25 MEQ PO ONE (10:45)
[2023-08-31 12:45] VITALS: BP 117/63; PULSE 71; RESP 19; TEMP 98; O2SAT 94
[2023-08-31 17:00] VITALS: BP 131/88; PULSE 67; RESP 18; TEMP 99; O2SAT 94
[2023-08-31 20:00] VITALS: RESP 17
[2023-08-31 21:42] VITALS: BP 105/54; PULSE 80; RESP 17; TEMP 99.3
[2023-08-31] MEDS: LATANOPROST 0.005 % OPTH(EYE) SOL 2.5ML EACHEYE SCH (22:14)
[2023-08-31] MEDS ORDERED: guaiFENesin-DM 100/10mg/5ml SYR PO PRN (22:45)
[2023-09-01 05:00] VITALS: BP 100/60; PULSE 74; RESP 18; TEMP 98; O2SAT 95
[2023-09-01 05:46] LABS: Basophils # (auto) 0.1 10 ^3/uL (0-0.2); Basophils % (auto) 0.7 % (0.0-2.0); Eosinophils # (auto) 0.3 10 ^3/uL (0-0.8); Eosinophils % (auto) 3.2 % (0.0-7.0); Hematocrit 42.3 % (36.0-46.0); Lymphocytes # (auto) 1.8 10 ^3/uL (0.4-5.4); Lymphocytes % (auto) 17.9 % (10.0-50.0); Mean Corpuscular Hemoglobin 28.5 pg (28.0-32.0); Mean Corpuscular Hgb Conc. 33.1 g/dL (32.0-36.0); Mean Corpuscular Volume 86.1 fL (80.0-100.0); Monocytes # (auto) 0.5 10 ^3/uL (0-1.3); Neutrophils # (auto) 7.5 10 ^3/uL (1.6-8.6); Neutrophils % (auto) 73.2 % (37.0-80.0); Red Blood Cells 4.91 10^6/uL (4.0-5.20); White Blood Cell 10.2 10^3/uL (4.4-10.8)
[2023-09-01 06:06] LABS: Alanine Aminotransferase 16 U/L (7-40); Albumin 3.5 g/dL (3.2-4.8); Alkaline Phosphatase 83 U/L (46-116); Anion Gap 8 (5-15); Aspartate Aminotransferase 9 U/L (13-40); Bilirubin, Total 0.3 mg/dL (0.2-1.0); Calcium 8.6 mg/dL (8.5-10.1); Carbon Dioxide 22 mmol/L (20-30); Chloride 110 mmol/L (98-107); Glucose 93 mg/dL (74-106); Potassium 3.3 mmol/L (3.5-5.1); Sodium 140 mmol/L (136-145); Total Protein 5.9 g/dL (5.7-8.2)
[2023-09-01 06:31] LABS: BUN/Creatinine Ratio 8.6 (10.0-20.0); Blood Urea Nitrogen < 5 mg/dL (9-23)
[2023-09-01] MEDS ORDERED: POTASSIUM CHLORIDE 20 MEQ, LIDOCAINE 1% (LOCAL ANESTH.) 2 ML in SODIUM CHL 0.9% 100 ML IV ONE (06:45)
[2023-09-01] MEDS ORDERED: POTASSIUM EFFERVESENT TAB 25 MEQ PO ONE (06:45)
[2023-09-01] MEDS: SUCRALFATE 1 GM/10 ML ORAL SUSP PO SCH ×2 (08:59→17:17)
[2023-09-01] MEDS: carBAMazepine 200 MG TAB PO SCH (08:59)
[2023-09-01] MEDS: cefTRIAXone 1GM/50ML D5W 50 ML IV SCH (09:00)
[2023-09-01] MEDS: PANTOPRAZOLE 40 MG/10 ML VIAL INJ IV SCH (09:00)
[2023-09-01 09:01] VITALS: BP 109/84; PULSE 92; RESP 18; TEMP 98.4; O2SAT 96
[2023-09-01] MEDS: TOPIRAMATE 100 MG TAB PO SCH (09:20)
[2023-09-01 13:00] VITALS: BP 110/84; PULSE 80; RESP 19; TEMP 98.9; O2SAT 94
== END 2023-09-01 18:35 | disposition home or self-care (01) | DRG 418 ==
LOC: EDBD 08:45 → ER 08:45 → UNDOADMIN 21:29 → OVERFLOW 21:29 → TELE 23:23 → EDUNIT# 23:23 → TELE-EAST 08-23 02:03 → TELE-E-ADS 08-25 16:37 → EAST 08-26 06:32
PROVIDERS: ADMIT Internal Medicine; ATTEND Student in an Organized Health Care Education/Training Program
PROC: 0DB98ZX Excision of Duodenum, Via Natural or Artificial Opening Endoscopic, Diagnostic (ICD-10-PCS; 2023-08-29)
PROC: 0DB68ZX Excision of Stomach, Via Natural or Artificial Opening Endoscopic, Diagnostic (ICD-10-PCS; 2023-08-29)
PROC: 0DB48ZX Excision of Esophagogastric Junction, Via Natural or Artificial Opening Endoscopic, Diagnostic (ICD-10-PCS; 2023-08-29)
PROC: 0FT44ZZ Resection of Gallbladder, Percutaneous Endoscopic Approach (ICD-10-PCS; principal; 2023-08-30 08:23)
DX: K80.70 Calculus of gallbladder and bile duct without cholecystitis without obstruction (principal); K22.10 Ulcer of esophagus without bleeding; G40.909 Epilepsy, unspecified, not intractable, without status epilepticus; R13.10 Dysphagia, unspecified; B34.9 Viral infection, unspecified; Z20.822 Contact with and (suspected) exposure to COVID-19; E78.5 Hyperlipidemia, unspecified; D72.829 Elevated white blood cell count, unspecified; E87.6 Hypokalemia; K82.8 Other specified diseases of gallbladder; K44.9 Diaphragmatic hernia without obstruction or gangrene; K29.70 Gastritis, unspecified, without bleeding; G80.9 Cerebral palsy, unspecified; Z79.1 Long term (current) use of non-steroidal anti-inflammatories (NSAID); Z79.899 Other long term (current) drug therapy; Z79.2 Long term (current) use of antibiotics; Z82.5 Family history of asthma and other chronic lower respiratory diseases; Z83.3 Family history of diabetes mellitus
CPT/HCPCS: 36415; 70450; 71045; 71250; 74176; 74220; 76705; 78226; 80053; 80061; 80156; 80201; 81001; 82150; 82247; 82306; 82607; 82746; 83036; 83605; 83690; 83735; 83880; 84484; 84702; 85025; 85610; 85730; 86850; 86900; 86901; 87081; 87086; 87426; 87804; 93005; 96365; 97116; 97163; 97530; C9113; G0378; J0696; J1956; J2001; J2250; J2405; J2704; J3490

== ENCOUNTER 2023-11-17 09:23 | Emergency (ER) | payer MEDICARE, MEDICAID ==
[~2023-11-17] VITALS: Ht 152.4 cm; Wt 78.3 kg
[~2023-11-17 09:23] MED LIST changes: +ACET500T58 PO; +AMOX875T4 PO; +AUG875T PO; +BRIV1TAB7 PO; +CARB200T5 PO; +CYA100I PO; +LATA0.008 EACHEYE; +TOPI100T29 PO
[2023-11-17 10:04] VITALS: BP 136/67; PULSE 80; RESP 18; TEMP 97.4; O2SAT 99
== END 2023-11-17 10:44 | disposition home or self-care (01) ==
LOC: ER 09:23
DX: Z48.00 Encounter for change or removal of nonsurgical wound dressing (principal); Z88.1 Allergy status to other antibiotic agents

== ENCOUNTER → 2025-04-08 | Day surgery (SDC) | payer MEDICARE, MEDICAID ==
[2025-04-05 12:11] LABS: Basophils # (auto) 0.1 10 ^3/uL (0-0.2); Eosinophils # (auto) 0.2 10 ^3/uL (0-0.8); Eosinophils % (auto) 2.9 % (0.0-7.0); Hematocrit 46.7 % (36.0-46.0); Hemoglobin 15.7 g/dL (12.2-16.2); Lymphocytes # (auto) 1.5 10 ^3/uL (0.4-5.4); Lymphocytes % (auto) 28.3 % (10.0-50.0); Mean Corpuscular Hemoglobin 28.4 pg (28.0-32.0); Mean Corpuscular Hgb Conc. 33.5 g/dL (32.0-36.0); Mean Corpuscular Volume 84.8 fL (80.0-100.0); Monocytes # (auto) 0.4 10 ^3/uL (0-1.3); Monocytes % (auto) 8.3 % (0.0-12.0); Neutrophils # (auto) 3.1 10 ^3/uL (1.6-8.6); Neutrophils % (auto) 59.5 % (37.0-80.0); Nucleated Red Blood Cells % 0.3 %; Platelet Count (auto) 253 10^3/uL (140-450); Red Blood Cells 5.51 10^6/uL (4.0-5.20); White Blood Cell 5.3 10^3/uL (4.4-10.8)
[2025-04-05 12:30] LABS: Alanine Aminotransferase 20 U/L (7-40); Albumin 4.8 g/dL (3.2-4.8); Anion Gap 8 (5-15); Aspartate Aminotransferase 14 U/L (13-40); BUN/Creatinine Ratio 18.1 (10.0-20.0); Blood Urea Nitrogen 13 mg/dL (9-23); Carbon Dioxide 27 mmol/L (20-31); Glucose 100 mg/dL (74-106); Potassium 3.6 mmol/L (3.5-5.1); Sodium 144 mmol/L (136-145); Total Protein 7.4 g/dL (5.7-8.2)
[2025-04-05 12:31] LABS: Alkaline Phosphatase 147 U/L (46-116); Bilirubin, Total 0.3 mg/dL (0.2-1.0); Chloride 109 mmol/L (98-107)
[2025-04-05 12:44] LABS: INR 0.97 (0.9-1.15); Partial Thromboplastin Time 28.7 SEC (24.5-34.5); Prothrombin Time 10.3 sec (9.3-11.8)
[~2025-04-08] VITALS: Ht 152.4 cm; Wt 84.4 kg
[~2025-04-08] MED LIST changes: -ACET500T58 PO; -ALBUAER3; -AMOX875T4 PO; -AUG875T PO; +CARB0.5D8 EACHEYE; +FOLITAB22 OR; +GABA-1308 PO; +GUAI600T78 PO; +IBUP-1456 PO; -LACO50TA2 OR; -LATA0.008; +LORA5SYP23 PO; +MIDAZOLAM HCL 5 MG/ML-1ML VIAL ONE; -OMEP1CAP70; -OMEP20TA PO; +ONDANSETRON HCL 4 MG/2 ML VIAL IV ONE; +PANT40TA2 PO; +PRAV20TA3 GT; +SODIUM CHLORIDE LOCK 0 ML ONE; -TOPI200T37 OR; +diphenhdrAMINE HCL 50 MG/1 ML VL ONE; +fentaNYL CITRATE 100 MCG/2 ML VL IV PRN; +fentaNYL CITRATE 100 MCG/2 ML VL ONE
[2025-04-08 14:08] VITALS: PULSE 76; RESP 20; O2SAT 100
--- NOTE | 2025-04-08 14:40 | DVHOP2 ---
Operative Report DATE OF OPERATION: 04/08/25 PROCEDURE: Diagnostic Colonoscopy. PREOPERATIVE INDICATION: The patient is a 49 -year-old female undergoing colonoscopy with a abdominal pain for colon cancer screening POSTOPERATIVE DIAGNOSES: 1. Trace internal hemorrhoids otherwise completely normal colonoscopy examination up to the cecum and terminal ileum PROCEDURE PERFORMED BY: Sharmila Collins M.D. SCOPE: Olympus videocolonoscope. ASA CLASS: 2 PREOPERATIVE MEDICATIONS: Mac sedation, [place] PROCEDURE IN DETAIL: After obtaining an informed consent, the patient was placed on left lateral decubitus position. She was then sedated with the above medications. A rectal examination was performed that was normal. The colonoscope was then passed through the anus into the rectosigmoid and through the descending, transverse, and ascending colon up to the cecum with visualization of the appendiceal orifice, base of the cecum and the ileocecal valve. The colonoscope was then withdrawn. The distal 5 cm of the terminal ileum were normal No polyps or masses were seen. There was no colitis or clear-cut diverticular disease. On retroflexion and straight on view she had trace internal hemorrhoids. The patient tolerated the procedure well without difficulty. WITHDRAWAL TIME: 6 minutes QUALITY OF THE PREP: Spearman Bowel Prep score: 9. COMPLICATIONS : None SPECIMENS: None DISPOSITION: Stable D/C to home PLAN: 1. Repeat colonoscopy in 10 years 2. Resume GI soft diet advance as tolerated 3. Local anorectal hemorrhoidal care 4. Outpatient follow up with me in 4-6 weeks to review results and discuss further management SHARMILA COLLINS MD April 08, 2025 14:40
[2025-04-08 15:00] VITALS: BP 123/71; PULSE 69; RESP 13; O2SAT 99
== END | disposition home or self-care (01) ==
LOC: GI 10:50
PROVIDERS: ATTEND Internal Medicine Gastroenterology
DX: R10.9 Unspecified abdominal pain (principal); K63.89 Other specified diseases of intestine; G40.909 Epilepsy, unspecified, not intractable, without status epilepticus; K44.9 Diaphragmatic hernia without obstruction or gangrene; Z79.899 Other long term (current) drug therapy; Z90.49 Acquired absence of other specified parts of digestive tract; Z98.890 Other specified postprocedural states; Z88.8 Allergy status to other drugs, medicaments and biological substances
CPT/HCPCS: 36415; 45378; 80053; 84702; 85025; 85610; 85730; J2250